=== PATIENT | female | born 1995 | race Caucasian/White ===

== ENCOUNTER 2019-05-20 22:24 | Emergency (ER) | payer SELFPAY ==
[2019-05-20 22:38] VITALS: TEMP 97.4
[2019-05-20] MEDS ORDERED: PLAIN PACKING STRIP 1/2 1 EA BTTL TOP ONE (23:06)
[2019-05-20] MEDS ORDERED: PLAIN PACKING STRIP 1/4 1 EA BTTL TOP ONE (23:06)
[2019-05-20] MEDS ORDERED: CLINDAMYCIN PHOSPHATE 150 MG/ML VIAL IM ONE (23:54)
--- NOTE | 2019-05-20 23:58 | ED.PDOC ---
History of Present Illness - General Chief Complaint: Skin/Abrasion/Tear Stated Complaint: abcess to chest wall Time Seen by Provider: 05/20/19 23:54 Source: patient, RN notes reviewed, Vital Signs reviewed, family - Sister Exam Limitations: no limitations - History of Present Illness Initial Comments: Patient is a 23-year-old white female who presents with complaints of right chest wall pain and possible abscess. 3 days ago it started off as a small pimple which she tried to pop. It is grown in size over the last 3 days. Patient states that is sharp and stabbing in nature, surrounded by redness and worse with palpation but throbs all the time. It is worsening. Patient denies any fever, chills, nausea, vomiting, diarrhea. Timing/Duration: other - 3 days ago Severity: moderate Location: torso - Right axilla below the bra line Improving Factors: nothing Worsening Factors: movement Associated Symptoms: swelling/mass/lumps Allergies/Adverse Reactions: Allergies NO KNOWN ALLERGY Allergy (Verified 05/20/19 23:25) Home Medications: Ambulatory Orders Clindamycin HCl [Cleocin] 300 mg PO Q6H #40 capsule 05/21/19 Review of Systems - Review of Systems Constitutional: States: no symptoms reported, see HPI. Denies: chills, fever EENTM: States: no symptoms reported. Denies: blurred vision, double vision Respiratory: States: no symptoms reported. Denies: cough, short of breath, wheezing Cardiology: States: no symptoms reported. Denies: chest pain, palpitations, syncope Gastrointestinal/Abdominal: States: no symptoms reported. Denies: abdominal pain, nausea, vomiting Genitourinary: States: no symptoms reported Musculoskeletal: Denies: no symptoms reported, back pain, joint pain, joint swelling Skin: States: see HPI, change in color, lesions - Right axilla Neurological: States: no symptoms reported. Denies: headache, numbness, tingling Endocrine: States: no symptoms reported Hematologic/Lymphatic: States: no symptoms reported All other Systems: Reviewed and Negative Past Medical History (General) - Patient Medical History Hx Seizures: No Hx Stroke: No Hx Dementia: No Hx Asthma: No Hx of COPD: No Hx Cardiac Disorders: No Hx Congestive Heart Failure: No Hx Pacemaker: No Hx Hypertension: No Hx Thyroid Disease: Yes Hx Diabetes: No Hx Gastroesophageal Reflux: No Hx Renal Disease: No Hx Cancer: No Hx of HIV: No Hx Hepatitis C: No Hx MRSA: No Surgical History: other - Vaccination History Hx Tetanus, Diphtheria Vaccination: Yes Hx Influenza Vaccination: No Hx Pneumococcal Vaccination: No - Social History Hx Tobacco Use: No Hx Chewing Tobacco Use: No Hx Alcohol Use: No Hx Substance Use: No Hx Substance Use Treatment: No Hx Depression: No Feels Threatened In Home Enviroment: No Feels Threatened In a Relationship: No Hx Physical Abuse: No Hx Emotional Abuse: No Hx Suspected Abuse: No Family Medical History - Family History Mother Family History: Unknown Physical Exam - Physical Exam General Appearance: Alert, Comfortable, Obese, Well Developed, Well Groomed, Well Hydrated, Well Nourished Eyes, Ears, Nose, Throat Exam: PERRL/EOMI, normal ENT inspection, pharynx normal Neck: non-tender, full range of motion, supple, normal inspection Cardiovascular/Chest: normal peripheral pulses, no edema, no gallop, no JVD, tachycardia Respiratory: lungs clear, normal breath sounds, no respiratory distress Gastrointestinal/Abdominal: normal bowel sounds, non tender, soft Back Exam: normal inspection, no CVA tenderness Extremity: normal range of motion, non-tender, normal inspection 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 Purulent material is draining from the abscess. There is surrounding cellulitis. It is tender to touch and warm. Skin Character: abscess, drainage - Drainage is purulent and yellowish in nature., tenderness, thickening Lymphatic: no adenopathy Progress - Progress Progress: Differential diagnosis: Abscess, cellulitis, shingles, contact dermatitis among others. 05/21/19 00:01 Patient tolerated the procedure well. Patient was given IM antibiotics and a prescription for antibiotics. Patient understands that she needs to change the packing daily. Plan discharge home at this time. Patient voices understanding and agreement with the plan of care. Aakash Oliva M.D. #[id number] Procedures - Image Front/Back of Body: 1 - Small 1 cm abscess with drainage. - Incision and Drainage #1 Procedure and Prep: betadine prep, gauze wick placed, wound culture collected, pus drained Blade Size: 11 Procedure Comments: Patient tolerated the procedure well wound was explored and packing was placed. Departure - Departure Clinical Impression: Cellulitis and abscess of trunk Skin abscess Qualifiers: Site of cutaneous abscess: trunk Site of cutaneous abscess of trunk: chest wall Qualified Code(s): L02.213 - Cutaneous abscess of chest wall Time of Disposition: 00:04 Disposition: Discharge to Home or Self Care Condition: Good Departure Forms: ED Discharge - Pt. Copy, Patient Portal Self Enrollment Instructions: Abscess Incision and Drainage (DC) Prescriptions: Clindamycin HCl [Cleocin] 300 mg PO Q6H #40 capsule Home Medications: Ambulatory Orders Clindamycin HCl [Cleocin] 300 mg PO Q6H #40 capsule 05/21/19 Additional Instructions: Patient to follow-up with PCP back in [place] within the next 2 to 3 days.
[2019-05-21 00:06] VITALS: BP 114/79; O2SAT 96
== END 2019-05-21 00:16 | disposition home or self-care (01) ==
LOC: ER 22:24
DX: L02.213 Cutaneous abscess of chest wall (principal); E07.9 Disorder of thyroid, unspecified
CPT/HCPCS: 87070; J3490